=== PATIENT | female | born 1965 | race Caucasian/White ===

== ENCOUNTER → 2016-10-04 | Outpatient (CLI) | payer BC ==
[2016-10-04 11:44] LABS: Basophils % (A) 1 %; CH 30.5; CHCM 33.1; Eosinophils # (A) 0.1 k/uL (0-0.7); Eosinophils % (A) 1 %; HCT 45.3 % (34.0-46.0); HDW 2.28; HGB 14.5 gm/dL (11.4-16.0); Luc # (Auto) 0.15; Luc % (Auto) 2; Lymphocytes # (A) 1.4 k/uL (1.0-4.8); Lymphocytes % (A) 17 %; MCH 29.7 pg (25.0-35.0); MCHC 32.1 g/dL (31.0-37.0); MCV 92.5 fL (80.0-100.0); Mean Platelet Volume 6.8; Monocytes # (A) 0.5 k/uL (0-1.0); Monocytes % (A) 7 %; Neutrophils # (A) 5.8 k/uL (1.3-7.7); Neutrophils % (A) 73 %; RBC 4.89 m/uL (3.80-5.40); RDW 12.8 % (11.5-15.5); WBC (Perox) 7.94
[2016-10-04 11:45] LABS: ALT 44 U/L (9-52); AST 32 U/L (14-36); Blood Urea Nitrogen 27 mg/dL (7-17); Non-African American GFR(MDRD) >60 (>60 ml/min/1.73 sqM)
[2016-10-04 11:47] LABS: Appearance,Urine Clear (Clear); Bilirubin,Urine Negative (Negative); Glucose,Urine (UA) Negative (Negative); Ketones,Urine Trace (Negative); Leukocyte Esterase,Urine Moderate (Negative); Mucus,Urine Few /hpf; Nitrite,Urine Negative (Negative); PH, Urine 5.5 (5.0-8.0); Particle Count 7521; Protein,Urine Trace (Negative); Specific Gravity,Urine 1.026 (1.001-1.035); Squamous Epithelial Cell,Urine 3 /hpf (0-4); UA Billing (MACRO vs. MICRO) MICRO; Urobilinogen,Urine <2.0 mg/dL (<2.0); WBC,Urine 7 /hpf (0-5)
== END | disposition home or self-care (01) ==
LOC: LABWHC1 11:16
PROVIDERS: ATTEND Dermatology
DX: L52 Erythema nodosum (principal)
CPT/HCPCS: 36415; 81001; 82565; 82955; 84450; 84460; 84520; 85025

== ENCOUNTER → 2017-02-19 | Outpatient (CLI) | payer BC | END | disposition home or self-care (01) | LOC: LABWHC1 09:43 | PROVIDERS: ATTEND Obstetrics & Gynecology | DX: E03.9 Hypothyroidism, unspecified (principal); E78.00 Pure hypercholesterolemia, unspecified | CPT/HCPCS: 36415; 80061; 84439; 84443; 84481 ==

== ENCOUNTER → 2017-08-21 | Outpatient (CLI) | payer BC ==
[2017-08-21 15:26] LABS: Basophils # (A) 0.1 k/uL (0-0.2); Basophils % (A) 1 %; Eosinophils # (A) 0.1 k/uL (0-0.7); Eosinophils % (A) 2 %; HCT 41.6 % (34.0-46.0); HGB 13.1 gm/dL (11.4-16.0); Lymphocytes % (A) 13 %; MCHC 31.5 g/dL (31.0-37.0); MCV 95.2 fL (80.0-100.0); Mean Platelet Volume 7.3; Monocytes # (A) 0.5 k/uL (0-1.0); Monocytes % (A) 6 %; Neutrophils % (A) 77 %; Platelet Count 324 k/uL (150-450); RBC 4.37 m/uL (3.80-5.40); RDW 14.5 % (11.5-15.5); WBC 7.8 k/uL (3.8-10.6)
[2017-08-21 15:34] LABS: ALT 48 U/L (9-52); AST 30 U/L (14-36); Albumin 4.3 g/dL (3.5-5.0); Alkaline Phosphatase 64 U/L (38-126); Anion Gap 11 mmol/L; Blood Urea Nitrogen 23 mg/dL (7-17); Calcium 9.7 mg/dL (8.4-10.2); Carbon Dioxide 27 mmol/L (22-30); Chloride 103 mmol/L (98-107); Cholesterol 181 mg/dL (<200); Glucose 88 mg/dL (74-99); HDL Cholesterol 68 mg/dL (40-60); LDL Cholesterol,Calculated 83 mg/dL (0-99); Potassium 4.5 mmol/L (3.5-5.1); Sodium 141 mmol/L (137-145); Total Bilirubin 0.4 mg/dL (0.2-1.3); Total Protein 7.1 g/dL (6.3-8.2); Triglycerides 149 mg/dL (<150)
[2017-08-21 15:50] LABS: T4, Free (Free Thyroxine) 0.95 ng/dL (0.78-2.19)
[2017-08-21 19:15] LABS: Progesterone 0.3 ng/mL
[2017-08-21 19:18] LABS: Vitamin D 25 Hydroxy 28.4 ng/mL (30.0-100.0)
[2017-08-24 23:14] LABS: Testosterone, Free, LC/MS/MS 0.9 pg/mL (0.2-5.0)
== END | disposition home or self-care (01) ==
LOC: LABWHC1 14:31
PROVIDERS: ATTEND Obstetrics & Gynecology
DX: Z00.00 Encounter for general adult medical examination without abnormal findings (principal); E03.9 Hypothyroidism, unspecified; E55.9 Vitamin D deficiency, unspecified; R53.83 Other fatigue
CPT/HCPCS: 36415; 80053; 80061; 82040; 82306; 82670; 82728; 83001; 83002; 84144; 84270; 84403; 84439; 84443; 85025

== ENCOUNTER → 2017-10-01 | Outpatient (CLI) | payer BC | END | disposition home or self-care (01) | LOC: LABWHC1 16:12 | PROVIDERS: ATTEND Otolaryngology | DX: J30.89 Other allergic rhinitis (principal) | CPT/HCPCS: 36415 ==

== ENCOUNTER → 2017-10-09 | Outpatient (CLI) | payer BC ==
--- NOTE | 2017-10-09 19:39 | PN ---
PROGRESS NOTE This is a 52-year-old female patient diagnosed having severe symptomatic JACK with an AHI of 116. The patient was treated with a CPAP pressure of 17 cm of water. The patient is coming to see me in followup for a compliancy check. She is utilizing an Varsha full-face mask. She is very happy. She reports marked improvement in sleep quality and she is waking up much more alert and refreshed during the day. She has good energy and she has more incentive to do further activity. She is encouraged to lose weight. She has been utilizing her CPAP every night. Her compliancy has been 100% for more than 4 hours. She is averaging around 5.4 hours of CPAP use per night. Her leak factor is 20 L/minute and her AHI while on treatment is down to 2.2. As such, treatment has been successful. The patient has no specific complaints. Height is 65 inches. Weight 239. BMI is 39.7. VITALS: Blood pressure 117/70, pulse 80, respiration 16. GENERAL APPEARANCE: Calm, comfortable. Head is atraumatic, normocephalic. Neck is short. Mallampati class IV. There is no goiter or neck masses. LUNGS: Clear to auscultation. Heart sounds are regular rate and rhythm. Normal S1, S2. No S3, S4. No murmurs. Abdomen is soft, nontender. No organomegaly. EXTREMITIES: No edema. No cyanosis or clubbing. NEUROLOGIC: Alert and oriented x3. There is no focal neurological deficit. PSYCHIATRIC: No anxiety or depression. Mood is appropriate. SKIN: No ulcerations or wounds. IMPRESSION: 1. Severe obstructive sleep apnea with an AHI of 116, currently on CPAP with a pressure of 17 with excellent clinical response and compliance. 2. Obesity. 3. Chronic hypersomnia, improved. 4. Allergic rhinitis. 5. Hypothyroidism. PLAN: Treatment is successful. Continue CPAP therapy at the same level of pressure. Continue same mask interface. Encourage weight loss. See me back in a year's time, earlier if needed. The patient has improved significantly. She reports marked improvement in sleep quality and she is much more alert and awake during the day. MMODL / IJN: [id number] /
== END | disposition home or self-care (01) ==
LOC: SLEEP 15:53
PROVIDERS: ATTEND Internal Medicine Critical Care Medicine
DX: G47.33 Obstructive sleep apnea (adult) (pediatric) (principal); E66.9 Obesity, unspecified; J30.9 Allergic rhinitis, unspecified; E03.9 Hypothyroidism, unspecified; Z68.39 Body mass index [BMI] 39.0-39.9, adult; Z99.89 Dependence on other enabling machines and devices

== ENCOUNTER → 2018-11-05 | Outpatient (CLI) | payer BC ==
--- NOTE | 2018-11-05 17:19 | PN ---
PROGRESS NOTE 53-year-old, coming in for annual check regarding JACK treatment. She has severe JACK with an AHI of 116 still on CPAP pressure of 17 cm of water. She has lost down 2 pounds since her last evaluation approximately a year ago. Treatment remains successful. No complaints whatsoever. She has been utilizing her CPAP every night. Her CPAP use for more than 4 hours 26 out of 30. Average CPAP use is around 6.4 hours per night. AHI is down to 0.6. Leak is less than 30 L/minutes. She is using the Varsha View full-face mask. Ames score is down to 3. No new onset medical problems or comorbidities. Her cardiac rhythm is sinus. No angina. No palpitations. No stroke. No other complaints. REVIEW OF SYSTEMS: 14-point review of system was done. Positive findings are mentioned above in history of present illness. PHYSICAL EXAMINATION: BP is 156/60, pulse 91, respirations 16, temperature 98.1, height is 5 feet, 4 inches, weight is 237. Ames score 3. BMI is 40.6, temperature 98.0. General appearance: Calm and comfortable. Head is atraumatic, normocephalic. NECK: Supple. Mallampati class IV. There is no goiter or neck mass. LUNGS: Clear to auscultation. HEART: Sounds regular rate and rhythm. Normal S1, S2. No S3. No murmurs. ABDOMEN: Soft, nontender. No organomegaly. EXTREMITIES: No edema. No cyanosis or clubbing. NEUROLOGIC: Alert and oriented x3. No focal neurological deficits. PSYCHIATRIC: Negative for anxiety or depression. IMPRESSION: 1. Severe obstructive sleep apnea, AHI of 116 currently on CPAP pressure of 17, continues to be successfully treated. 2. Hypersomnia, recovered. Ames score is down to 3 and the patient is completely asymptomatic. 3. Obesity with a BMI of 40.6. 4. Allergic rhinitis. 5. Hypothyroidism. PLAN: 1. Weight loss. 2. Continue CPAP therapy at same level of pressure. 3. Keep the patient on an Varsha View full-face mask. 4. See me back in two year's time in followup. MMODL / IJN: [id number] /
== END ==
LOC: SLEEP 15:36
PROVIDERS: ATTEND Internal Medicine Critical Care Medicine
DX: G47.33 Obstructive sleep apnea (adult) (pediatric) (principal); E66.9 Obesity, unspecified; E03.9 Hypothyroidism, unspecified; J30.9 Allergic rhinitis, unspecified; Z68.41 Body mass index [BMI] 40.0-44.9, adult; Z99.89 Dependence on other enabling machines and devices